=== PATIENT | male | born 1950 | race Caucasian/White ===

== ENCOUNTER 2016-06-26 13:22 | Observation (INO) | payer BC, OTHER ==
[2016-06-26] MEDS ORDERED: SODIUM CHLORIDE 0.9% 1,000 ML IV ONE (14:08)
[2016-06-26] MEDS ORDERED: POTASSIUM BICARB 25 MEQ TABLET PO STA (14:32)
[2016-06-26] MEDS ORDERED: POTASSIUM BICARB 25 MEQ TABLET PO ONE (14:38)
[2016-06-26] MEDS ORDERED: LORazepam 2 MG/ML SYRINGE IVP STA (15:12)
[2016-06-26] MEDS ORDERED: LORazepam 2 MG/ML SYRINGE ONE (15:17)
[2016-06-26] MEDS ORDERED: SODIUM CHLORIDE FLUSH 0.9% 10 ML SYRINGE IVP PRN (16:17)
[2016-06-26] MEDS: NS W/20 MEQ KCL 1,000 ML IV SCH (19:12)
[2016-06-26] MEDS: POTASSIUM CHLORIDE 20 MEQ TABLET PO SCH (20:14)
[2016-06-26] MEDS: SODIUM CHLORIDE FLUSH 0.9% 10 ML SYRINGE IVP SCH (20:18)
[2016-06-26] MEDS ORDERED: IBUPROFEN 600 MG TABLET PO PRN (21:48)
[2016-06-26] MEDS ORDERED: GABAPENTIN 100 MG CAPSULE PO SCH (22:00)
[2016-06-26] MEDS ORDERED: INDAPAMIDE 2.5 MG TABLET PO SCH (22:00)
[2016-06-26] MEDS ORDERED: LOSARTAN 50 MG TABLET PO SCH (22:15)
[2016-06-26] MEDS: busPIRone 5 MG TABLET PO SCH (22:16)
[2016-06-27] MEDS: NS W/20 MEQ KCL 1,000 ML IV SCH (04:57)
[2016-06-27] MEDS: SODIUM CHLORIDE FLUSH 0.9% 10 ML SYRINGE IVP SCH (06:24)
[2016-06-27] MEDS ORDERED: LEVOTHYROXINE 75 MCG TABLET PO SCH (07:00)
[2016-06-27] MEDS ORDERED: ESCITALOPRAM 10 MG TABLET PO SCH (09:00)
[2016-06-27] MEDS ORDERED: POLYETHYLENE GLYCOL 3350 17 GM PACKET PO SCH (09:00)
[2016-06-27] MEDS ORDERED: FAMOTIDINE 20 MG TABLET PO SCH (09:00)
[2016-06-27] MEDS: busPIRone 5 MG TABLET PO SCH (09:21)
[2016-06-27] MEDS: POTASSIUM CHLORIDE 20 MEQ TABLET PO SCH (09:38)
[2016-06-27] MEDS ORDERED: POTASSIUM CHLORIDE 20 MEQ TABLET PO ONE (10:00)
[2016-06-27] MEDS ORDERED: LOSARTAN 50 MG TABLET PO SCH (22:00)
== END 2016-06-27 10:30 | disposition home or self-care (01) ==
DX: G45.4 Transient global amnesia (principal); E86.0 Dehydration; E87.6 Hypokalemia; I10 Essential (primary) hypertension; F41.8 Other specified anxiety disorders; E03.9 Hypothyroidism, unspecified; Y93.89 Activity, other specified; Z85.828 Personal history of other malignant neoplasm of skin
CPT/HCPCS: 36415; 70450; 80048; 80053; 80306; 80320; 81003; 83690; 84443; 84484; 85025; 93005; 93010; 96361; 96374; 99218; 99284; 99285; A9270; J2060

== ENCOUNTER 2023-08-10 02:40 | Emergency (ER) | payer MEDICARE, BC ==
--- NOTE | 2023-08-10 02:46 | ED Physician Documentation ---
PD HPI MALE - Stated complaint Stated Complaint: - History obtained from History obtained from: Patient - Additional information Additional information: HPI from patient. At approximately 9:30 PM susu, patient injected Tri-mix (alprostadil, phentolamine, papaverine) for ED. This was only the second time patient used this medication and he did not experience any untoward side effect with the first use. However, his erection that resulted from tonight's use of this medication lasted for hours and thus he presents to the emergency department for evaluation. On my HPI, patient says just as arrived to the emergency department, the erection finally seems to be subsiding. PD PAST MEDICAL HISTORY - Past Medical History Cardiovascular: Hypertension, High cholesterol Endocrine/Autoimmune: HyPOthyroidism - Past Surgical History Past Surgical History: Yes General: Appendectomy Ortho: Knee replacement, Rotator cuff repair, Shoulder arthroplasty Derm: Skin cancer surgery - Present Medications Home Medications: Ambulatory Orders Medication Instructions Recorded Confirmed Escitalopram [Lexapro] 10 mg PO DAILY tablet 06/27/16 Gabapentin [Neurontin] 200 mg PO QPM capsule 06/27/16 Ibuprofen [Motrin] 600 mg PO Q6HR PRN #0 tablet 06/27/16 Levothyroxine [Synthroid] 75 mcg PO QDAC tablet 06/27/16 Losartan [Cozaar] 100 mg PO QPM tablet 06/27/16 busPIRone [Buspar] 15 mg PO BID tablet 06/27/16 Papaver/Phentolamine/Alprostad 1 each IC 08/10/23 [Tri-Mix 150 mg-10 mg-100 Mcg] - Allergies Allergies/Adverse Reactions: Allergies Allergy/AdvReac Type Severity Reaction Status Date / Time No Known Drug Allergies Allergy Verified 08/10/23 02:50 - Social History Does the pt smoke?: No Smoking Status: Never smoker PD ED PE NORMAL - Vitals Vital signs reviewed: Yes - General General: Alert and oriented X 3, No acute distress PD ED PE EXPANDED - Male Male : Circumcised, Other (semi-erect) Results - Vitals Vitals: Vital Signs - 24 hr 08/10/23 02:46 Temperature 36.5 C Heart Rate 64 Respiratory 16 Rate Blood Pressure 146/82 H O2 Saturation 99 Oxygen O2 Source Room air PD Medical Decision Making - ED course Complexity details: re-evaluated patient, considered differential, d/w patient ED course: Patient presents due to erection lasting nearly 5 hours by the time of this evaluation. However, he notes that just as he was arriving to the emergency department, the erection finally was subsiding. He is observed in the emergency department for little over an hour, with serial reevaluations. At no time was he in any apparent distress and was denying any pain. On repeat evaluations, he continued to detumesce and was nearly flaccid prior to d/c. Patient says he was told by his prescribing urologist to take sudafed in this scenario, but patient is visiting [facility] and did not have any with him. He is given 60mg PO sudafed and then d/c home. Return precautions reviewed. I advised him to not use the medication again until and unless he is explicitly told that is okay to do so by his urologist. Departure - Departure Disposition: Home, Self Care Clinical Impression: Priapism Condition: Good Instructions: ED Priapism Follow-Up: Darrion Keller MD [Provider Admit Priv/Credential] - Comments: I would advise you to not use the injection you used tonight again until and unless your urologist explicitly says it is okay to do so. Forms: PCP List Discharge Date/Time: 08/10/23 03:58
[2023-08-10 02:52] VITALS: BP 146/82; O2SAT 99
[2023-08-10] MEDS: PSEUDOEPHEDRINE 30 MG TABLET PO STA (03:30)
== END 2023-08-10 03:58 | disposition home or self-care (01) ==
LOC: ED 02:40
DX: N48.33 Priapism, drug-induced (principal); I10 Essential (primary) hypertension; E78.00 Pure hypercholesterolemia, unspecified; E03.9 Hypothyroidism, unspecified; Z85.828 Personal history of other malignant neoplasm of skin; Z85.030 Personal history of malignant carcinoid tumor of large intestine; Z79.899 Other long term (current) drug therapy
CPT/HCPCS: 99282; 99283; A9270